=== PATIENT | female | born 1980 | race Caucasian/White ===

== ENCOUNTER 2021-12-23 15:57 | Emergency (ER) | payer SELFPAY ==
[~2021-12-23] VITALS: Ht 167.6 cm; Wt 100.0 kg
[2021-12-23 16:41] VITALS: BP 130/82
== END 2021-12-24 00:12 | disposition left against medical advice (07) ==
LOC: ER 15:57
DX: Z53.21 Procedure and treatment not carried out due to patient leaving prior to being seen by health care provider (principal)